=== PATIENT | male | born 1960 | race Hispanic/Latino ===

== ENCOUNTER → 2025-03-19 | Day surgery (SDC) | payer BC ==
[~2025-03-19] MED LIST: FENTANYL CITRATE/PF 100MCG/2 ML INJ ONE; LIDOCAINE HCL 2% LOCAL INJ 5 ML SDV VIAL INJ ONE; MIDAZOLAM HCL 2 MG/2 ML VIAL ONE; PHENYLEPHRINE HCL 1% 10 MG/ML VIAL ONE; PROPOFOL IV EMULSION 10 MG/ML 20 ML VIAL ONE; VITAMIN D310 MCG PO
[2025-03-19] MEDS: LACTATED RINGER'S 1,000 ML ONE (05:53)
[2025-03-19 07:20] VITALS: TEMP 97.1
[2025-03-19 07:35] VITALS: BP 117/74; PULSE 68; RESP 15; O2SAT 98
== END | disposition home or self-care (01) ==
LOC: OR 05:23
PROVIDERS: ATTEND Internal Medicine Gastroenterology
DX: Z12.11 Encounter for screening for malignant neoplasm of colon (principal); D12.3 Benign neoplasm of transverse colon; K31.7 Polyp of stomach and duodenum; K26.3 Acute duodenal ulcer without hemorrhage or perforation; K29.70 Gastritis, unspecified, without bleeding; K22.70 Barrett's esophagus without dysplasia; K21.00 Gastro-esophageal reflux disease with esophagitis, without bleeding; K64.8 Other hemorrhoids; K44.9 Diaphragmatic hernia without obstruction or gangrene; K76.89 Other specified diseases of liver; Z01.810 Encounter for preprocedural cardiovascular examination; Z79.899 Other long term (current) drug therapy
CPT/HCPCS: 43239; 43251; 45385; 93005; J2003; J2371; J2704; J7121; 45378; J2250